=== PATIENT | female | born 1995 | race Caucasian/White ===

== ENCOUNTER 2017-11-17 00:15 | Emergency (ER) | payer BC, OTHER ==
[~2017-11-17] VITALS: Ht 162.6 cm; Wt 77.1 kg
[~2017-11-17 00:15] MED LIST: KEPPRA500 MG PO; KLONOPIN2 MG PO
[2017-11-17] MEDS ORDERED: SODIUM CHLORIDE 0.9% 1000ML 1,000 ML IV STA (00:43)
[2017-11-17] MEDS ORDERED: PANTOPRAZOLE 40 MG 10ML VIAL IV STA (00:43)
[2017-11-17] MEDS ORDERED: ONDANSETRON HCL INJ 2 MG/ML VIAL IV STA (00:43)
[2017-11-17 00:58] LABS: BASOPHILS # (AUTO) 0.1 (0.0-0.1); BASOPHILS % 0.4 % (0.0-1.0); BILIRUBIN,URINE 1+ (NEGATIVE); CLARITY,URINE SL CLOUDY (CLEAR); COLOR,URINE AMBER (YELLOW); EOSINOPHILS # (AUTO) 0.3 (0.0-0.4); EOSINOPHILS % 1.8 % (0.0-6.0); HEMATOCRIT 40.2 % (34.2-44.1); HEMOGLOBIN 13.3 g/dL (12.0-16.0); KETONES,URINE TRACE (NEGATIVE); LEUKOCYTE ESTERASE ,URINE 1+ (NEGATIVE); LYMPHOCYTES # (AUTO) 2.6 (1.0-3.2); LYMPHOCYTES % 16.5 % (18.0-39.1); MEAN CORPUSCULAR HEMOGLOBIN 27.6 pg (28-32); MEAN CORPUSCULAR HGB CONC 33.1 g/dL (31-35); MEAN CORPUSCULAR VOLUME 83.4 fL (81-99); MONOCYTES # (AUTO) 0.8 (0.2-0.8); MONOCYTES % 4.8 % (4.4-11.3); NEUTROPHILS # (AUTO) 12.1 (2.1-6.9); NEUTROPHILS % 76.1 % (38.7-80.0); NITRITE,URINE NEGATIVE (NEGATIVE); PLATELET COUNT 452 x10e3/uL (140-360); PROTEIN,URINE DIPSTICK 2+ (NEGATIVE); RED BLOOD COUNT 4.82 x10e6/uL (3.6-5.1); RED CELL DISTRIBUTION WIDTH 12.9 % (11.7-14.4); URINE UROBILINOGEN 1 mg/dL (0.2 - 1)
[2017-11-17 01:03] LABS: BACTERIA,URINE MODERATE /HPF; EPITHELIAL CELLS,URINE FEW /LPF; WBC,URINE (MAN) 21-50 /HPF (0-5)
[2017-11-17 01:04] LABS: MUCUS,URINE FEW (RARE)
[2017-11-17 01:07] LABS: INR 0.89; PROTHROMBIN TIME 12.5 seconds (11.9-14.5)
[2017-11-17 01:08] LABS: PARTIAL THROMBOPLASTIN TIME 28.2 seconds (23.8-35.5)
[2017-11-17 01:18] LABS: ALANINE AMINOTRANSFERASE 15 IU/L (0-55); ALBUMIN 4.1 g/dL (3.5-5.0); ALBUMIN/GLOBULIN RATIO 1.1 (0.8-2.0); ALKALINE PHOSPHATASE 55 IU/L (40-150); AMYLASE 73 U/L (25-125); BLOOD UREA NITROGEN 13 mg/dL (7-26); BUN/CREATININE RATIO 18 (6-25); CALCIUM 9.6 mg/dL (8.4-10.2); CARBON DIOXIDE 24 mmol/L (22-29); CHLORIDE 106 mmol/L (98-107); CREATININE, SERUM 0.74 mg/dL (0.57-1.11); EST GLOMERULAR FILTRATION RATE > 60 ML/MIN (60-); GLUCOSE 153 mg/dL (74-118); LIPASE 40 U/L (8-78); MAGNESIUM 1.7 MG/DL (1.3-2.1); SODIUM 139 mmol/L (136-145)
[2017-11-17] MEDS ORDERED: KETOROLAC TROMETHAMINE 30 MG/ML VIAL IV STA (01:40)
--- NOTE | 2017-11-17 03:02 | Diagnostic Imaging Report ---
EXAM: CT Abdomen and Pelvis WITHOUT contrast INDICATION: Right lower quadrant pain, right flank pain. COMPARISON: None. TECHNIQUE: Abdomen and pelvis were scanned utilizing a multidetector helical scanner from the lung base to the pubic symphysis without administration of IV contrast. Absence of intravenous contrast decreases sensitivity for detection of focal lesions and vascular pathology. Coronal and sagittal reformations were obtained. Stone protocol is performed. IV CONTRAST: None. ORAL CONTRAST: Water RADIATION DOSE: Total DLP: 801.79 mGy*cm Estimated effective dose: (DLP x 0.015 x size factor) mSv COMPLICATIONS: None FINDINGS: LINES and TUBES: None. LOWER THORAX: Unremarkable HEPATOBILIARY: No focal hepatic lesions. No biliary ductal dilation. GALLBLADDER: No radio-opaque stones or sludge. No wall thickening. SPLEEN: No splenomegaly. PANCREAS: No focal masses or ductal dilatation. ADRENALS: No adrenal nodules KIDNEYS/URETERS: No hydronephrosis. No cystic or solid mass lesions. Bilateral hyperdensities in the distribution of the renal calyces compatible with nephrocalcinosis. Punctate calcification in the inferior renal collecting system of the right kidney measuring 2 mm best seen on series 3, image 69 GI TRACT: No abnormal distention, wall thickening, or evidence of bowel obstruction. Appendix is normal. PELVIC ORGANS/BLADDER: Unremarkable. LYMPH NODES: No lymphadenopathy. VESSELS: Unremarkable. PERITONEUM / RETROPERITONEUM: No free air or fluid. BONES: Unremarkable. SOFT TISSUES: Unremarkable. IMPRESSION: 1. Right-sided nephrolithiasis. 2. No evidence of hydronephrosis or hydroureter. 3. Bilateral nephrocalcinosis. Signed by: Dr. Conrado Duenas M.D. on 11/17/2017 2:58 AM
[2017-11-17] MEDS ORDERED: CEFTRIAXONE SOD 1 GM VIAL IV ONE (03:45)
== END 2017-11-17 04:36 | disposition home or self-care (01) ==
LOC: ER 00:15
DX: N10 Acute pyelonephritis (principal); R19.7 Diarrhea, unspecified
CPT/HCPCS: 36415; 74176; 80053; 81001; 82150; 83690; 83735; 84702; 85025; 85610; 85730; 87086; 99284; J0696; J1885; J2405; J7030